=== PATIENT | male | born 1995 | race Caucasian/White ===

== ENCOUNTER → 2017-05-13 | Outpatient (CLI) | payer OTHER, BC ==
[~2017-05-13] MED LIST: ACET-1256 PO; CREAPOW7 PO; MULT-513 PO; OMEG10007 PO
[2017-05-16 07:28] LABS: CHLAMYDIA TRACH RNA*** NOT DETECTED (NOT DETECTED); GC (NEIS GONORRHOEAE)RNA** NOT DETECTED (NOT DETECTED)
== END | disposition home or self-care (01) ==
LOC: C.LABBFT 11:14
PROVIDERS: ATTEND Physician Assistant Medical
DX: Z20.2 Contact with and (suspected) exposure to infections with a predominantly sexual mode of transmission (principal)

== ENCOUNTER → 2017-08-10 | Outpatient (CLI) | payer OTHER, BC ==
[~2017-08-10] MED LIST changes: +GADAVIST IV PRN
--- NOTE | 2017-08-10 11:45 | DIAGNOSTIC IMAGING REPORT ---
L ARTHROGRAM SHOULDER CLINICAL HISTORY: 22 years-old Male presenting with SHOULDER PAIN. COMPARISON: None. PROCEDURE: The risks, benefits, and alternatives to the procedure were discussed with the patient. Written informed consent was obtained. The patient was placed supine on the fluoroscopy table, and a left shoulder injection was performed under fluoroscopic guidance. The area was prepped and draped in the usual sterile fashion. The skin and soft tissues anesthetized with local 1% lidocaine. The left shoulder joint was accessed utilizing a 22-gauge needle, and approximately 12 cc of a mixture of gadolinium contrast, Optiray 300, and saline was injected into the joint space under fluoroscopic guidance. There was normal distention of the capsule. The procedure was well tolerated without immediate complication. The patient was then transferred to MRI for MR arthrography. Fluoroscopy dosage (mGy): Not available. Fluoroscopy time: 20 seconds. Number of fluoroscopic spot images: 0. IMPRESSION: Successful injection of the left shoulder under fluoroscopic guidance. Electronically signed by: Jalen Hinton M.D. 08/10/2017 11:43 AM Dictated Date/Time: 08/10/2017 11:43 AM
--- NOTE | 2017-08-10 12:46 | DIAGNOSTIC IMAGING REPORT ---
L UPPER EXTREMITY JOINT W/ CLINICAL HISTORY: SHOULDER PAIN pain TECHNIQUE: Multiaxial MRI acquisition post shoulder arthrography COMPARISON STUDY: None FINDINGS: Signal characteristics of the osseous structures appear generally unremarkable. There is minimal hypertrophic change acromioclavicular joint although no significant impingement is identified. There is trace amount of fluid within the subdeltoid bursa which may indicate a trace amount of bursitis. Rotator cuff is intact. There is no evidence for rotator cuff tear. The labrum is intact. Biceps tendon shows no evidence for disruption. IMPRESSION: 1. Mild subdeltoid bursitis. 2. No evidence for rotator cuff tear. 3. Study is otherwise unremarkable. The above report was generated using voice recognition software. It may contain grammatical, syntax or spelling errors. Electronically signed by: Víctor Wang M.D. 08/10/2017 12:44 PM Dictated Date/Time: 08/10/2017 12:31 PM
== END | disposition home or self-care (01) ==
LOC: C.MRIBC 10:32
PROVIDERS: ATTEND Orthopaedic Surgery
DX: M25.512 Pain in left shoulder (principal)